=== PATIENT | female | born 1975 | race African-American/Black ===

== ENCOUNTER 2016-09-12 23:14 | Emergency (ER) | payer MEDICARE, MEDICAID ==
[~2016-09-12] VITALS: Ht 165.1 cm; Wt 61.0 kg
[~2016-09-12 23:14] MED LIST: ATOR80TA76 PO; CINA30 PO; ESOM40CA PO; LABE300T PO; NIFE60TA64 PO; ONDA4TAB5 PO; OXYC5CAP12 PO; SEVE800T8 PO
[2016-09-12] MEDS ORDERED: MORPHINE SULFATE 4 MG/ML CPJ (NOT FOR IM USE) IV STA (23:26)
[2016-09-12] MEDS ORDERED: ONDANSETRON HCL 4MG/2ML VIAL IV STA (23:26)
[2016-09-12] MEDS ORDERED: PANTOPRAZOLE SODIUM 40 MG/VIAL IV STA (23:26)
[2016-09-12] MEDS ORDERED: LABETALOL HCL 20MG/4ML CARPUJECT IV ONE (23:30)
[2016-09-12 23:58] LABS: BASOPHILS % 0.5 % (0.0-2.0); DIFFERENTIAL COMMENT 0; EOSINOPHILS % 0.3 % (0.0-5.0); HEMATOCRIT. 37.5 % (36.0-48.0); HEMOGLOBIN. 12.2 g/dL (12.0-16.0); LYMPHOCYTES % 11.3 % (20.0-50.0); MEAN CORPUSCULAR HEMOGLOBIN 23.3 pg (28.0-32.0); MEAN CORPUSCULAR HGB CONC 32.4 g/dL (31.0-37.0); MEAN CORPUSCULAR VOLUME 71.8 fL (81.0-99.0); MEAN PLATELET VOLUME 8.5 fl (7.4-10.4); MONOCYTES % 4.3 % (2.0-8.0); NEUTROPHILS % 83.6 % (40.0-76.0); PLATELET 178 x1000/uL (130-400); RED BLOOD CELL COUNT 5.22 mill/uL (4.2-5.4); RED CELL DISTRIBUTION WIDTH 20.8 % (11.6-14.6); WHITE BLOOD COUNT 6.9 x1000/uL (4.5-11.0)
[2016-09-13 00:05] LABS: INR 1.1; PROTHROMBIN TIME 11.4 sec
[2016-09-13 00:09] LABS: HCG SCREEN NEGATIVE
[2016-09-13 00:31] LABS: ALANINE AMINOTRANSFERASE 18 IU/L (13-61); ALBUMIN 4.2 g/dL (3.4-5.0); ANION GAP 19; CALCIUM 10.4 mg/dL (8.5-10.1); CARBON DIOXIDE 25 mEq/L (21-32); CHLORIDE 99 mEq/L (98-107); ETHANOL BLOOD < 10 mg/dL; INDEX HEMOLYSI 1 (1-3); INDEX ICTERIC 1 (1-4); INDEX LIPEMIC 1 (1-3); LIPASE 152 IU/L (73-393); TROPONIN I 0.03 ng/mL (0.00-0.04); UREA NITROGEN BLOOD 28 mg/dL (7-21); eGFR 8 mL/min (>60)
[2016-09-13 00:58] LABS: LACTIC ACID 2.2 mmol/L (0.4-2.0)
[2016-09-13] MEDS ORDERED: FENTANYL CITRATE/PF 50MCG/ML 2ML VIAL IV ONE ×2 (01:00→01:45)
[2016-09-13] MEDS ORDERED: HYDRALAZINE 20MG/ML VIAL IV ONE (01:45)
[2016-09-13] MEDS ORDERED: ONDANSETRON HCL 4MG/2ML VIAL IV STA (03:02)
[2016-09-13] MEDS ORDERED: HYDRALAZINE 20MG/ML VIAL IV NR (03:05)
[2016-09-13] MEDS ORDERED: MIDAZOLAM HCL 2 MG/2 ML VIAL IV ONE (03:15)
[2016-09-13 03:23] VITALS: BP 221/104
== END 2016-09-13 05:09 | disposition left against medical advice (07) ==
LOC: ER 23:20
DX: N18.9 Chronic kidney disease, unspecified (principal); R10.84 Generalized abdominal pain; I12.9 Hypertensive chronic kidney disease with stage 1 through stage 4 chronic kidney disease, or unspecified chronic kidney disease; I16.0 Hypertensive urgency; F17.210 Nicotine dependence, cigarettes, uncomplicated; Z88.1 Allergy status to other antibiotic agents; Z79.899 Other long term (current) drug therapy; Z99.2 Dependence on renal dialysis
CPT/HCPCS: 36415; 71010; 74176; 80053; 83605; 83690; 84484; 84703; 85025; 85610; 93005; 96374; 96375; 96376; 99291; C9113; G0482; J0360; J2250; J2270; J2405; J3010; J3490

== ENCOUNTER 2016-12-01 13:11 | Emergency (ER) | payer MEDICARE, MEDICAID ==
[~2016-12-01] VITALS: Ht 165.1 cm; Wt 79.0 kg
[~2016-12-01 13:11] MED LIST changes: +ATOR-2 PO; -ATOR80TA76 PO
[2016-12-01] MEDS ORDERED: MORPHINE SULFATE 4 MG/ML CPJ (NOT FOR IM USE) IV STA (14:25)
[2016-12-01] MEDS ORDERED: ONDANSETRON HCL 4MG/2ML VIAL IV STA (14:25)
[2016-12-01 15:21] LABS: BASOPHILS % 0.7 % (0.0-2.0); EOSINOPHILS % 0.6 % (0.0-5.0); HEMATOCRIT. 35.1 % (36.0-48.0); HEMOGLOBIN. 11.3 g/dL (12.0-16.0); LYMPHOCYTES % 12.3 % (20.0-50.0); MEAN CORPUSCULAR HEMOGLOBIN 24.1 pg (28.0-32.0); MEAN CORPUSCULAR VOLUME 74.7 fL (81.0-99.0); MEAN PLATELET VOLUME 9.3 fl (7.4-10.4); MONOCYTES % 3.5 % (2.0-8.0); NEUTROPHILS % 82.9 % (40.0-76.0); PLATELET 140 x1000/uL (130-400); RED CELL DISTRIBUTION WIDTH 17.6 % (11.6-14.6)
[2016-12-01 15:23] LABS: INR 1.1
[2016-12-01 15:29] LABS: CARBON DIOXIDE 29 mEq/L (21-32); CHLORIDE 101 mEq/L (98-107)
[2016-12-01 15:36] LABS: HCG SCREEN NEGATIVE
[2016-12-01] MEDS ORDERED: MORPHINE SULFATE 4 MG/ML CPJ (NOT FOR IM USE) IV ONE (16:00)
[2016-12-01 16:43] VITALS: BP 160/66
[2016-12-01] MEDS ORDERED: ACETAMINOPHEN 325MG TABLET PO ONE (16:45)
== END 2016-12-01 16:46 | disposition home or self-care (01) ==
LOC: ER 13:15
DX: R10.13 Epigastric pain (principal); R11.2 Nausea with vomiting, unspecified; R19.7 Diarrhea, unspecified; I13.11 Hypertensive heart and chronic kidney disease without heart failure, with stage 5 chronic kidney disease, or end stage renal disease; N18.6 End stage renal disease; I51.9 Heart disease, unspecified; Z99.2 Dependence on renal dialysis; Z88.1 Allergy status to other antibiotic agents
CPT/HCPCS: 36415; 74176; 80053; 83690; 84703; 85025; 85610; 96374; 96375; 96376; 99285; J2270; J2405

== ENCOUNTER 2016-12-01 20:37 | Emergency (ER) | payer MEDICARE, MEDICAID ==
[~2016-12-01] VITALS: Ht 165.1 cm; Wt 71.4 kg
[2016-12-01] MEDS ORDERED: ONDANSETRON HCL 4MG/2ML VIAL IV STA (22:19)
[2016-12-01] MEDS ORDERED: KETOROLAC 30MG/ML VIAL IV STA (22:19)
[2016-12-01 22:49] LABS: HEMATOCRIT. 33.9 % (36.0-48.0); HEMOGLOBIN. 10.8 g/dL (12.0-16.0); MEAN CORPUSCULAR HEMOGLOBIN 23.7 pg (28.0-32.0); MEAN CORPUSCULAR VOLUME 74.4 fL (81.0-99.0); PLATELET 145 x1000/uL (130-400); RED BLOOD CELL COUNT 4.55 mill/uL (4.2-5.4)
[2016-12-01 22:55] LABS: CHLORIDE 97 mEq/L (98-107)
[2016-12-01 22:56] LABS: INR 1.1; PROTHROMBIN TIME 11.1 sec
[2016-12-01 23:02] LABS: CARBON DIOXIDE 25 mEq/L (21-32)
[2016-12-01 23:07] LABS: PLATELET ESTIMATE NORMAL
[2016-12-02] MEDS ORDERED: HYDRALAZINE 20MG/ML VIAL IV ONE (00:45)
[2016-12-02 01:52] VITALS: BP 180/110
== END 2016-12-02 01:56 | disposition home or self-care (01) ==
LOC: ER 21:23
DX: R10.33 Periumbilical pain (principal); R11.2 Nausea with vomiting, unspecified; I16.0 Hypertensive urgency; I10 Essential (primary) hypertension; Z99.2 Dependence on renal dialysis; Z88.1 Allergy status to other antibiotic agents; Z79.899 Other long term (current) drug therapy
CPT/HCPCS: 36415; 74176; 80053; 83690; 85025; 85610; 96374; 96375; 99285; J0360; J1885; J2405

== ENCOUNTER 2016-12-19 22:29 | Emergency (ER) | payer MEDICARE, MEDICAID ==
[~2016-12-19] VITALS: Ht 162.6 cm; Wt 73.0 kg
[2016-12-19] MEDS ORDERED: METOCLOPRAMIDE HCL 10MG/2ML VIAL IV STA (23:56)
[2016-12-19] MEDS ORDERED: MORPHINE SULFATE 4 MG/ML CPJ (NOT FOR IM USE) IV STA (23:56)
[2016-12-20] MEDS ORDERED: DIPHENHYDRAMINE 50MG/ML VIAL IV ONE
[2016-12-20 00:24] LABS: BASOPHILS % 0.7 % (0.0-2.0); EOSINOPHILS % 0.2 % (0.0-5.0); HEMATOCRIT. 31.9 % (36.0-48.0); HEMOGLOBIN. 10.3 g/dL (12.0-16.0); LYMPHOCYTES % 8.4 % (20.0-50.0); MEAN CORPUSCULAR HEMOGLOBIN 24.5 pg (28.0-32.0); MEAN CORPUSCULAR VOLUME 76.1 fL (81.0-99.0); MONOCYTES % 2.9 % (2.0-8.0); NEUTROPHILS % 87.8 % (40.0-76.0); PLATELET 218 x1000/uL (130-400); RED BLOOD CELL COUNT 4.19 mill/uL (4.2-5.4); RED CELL DISTRIBUTION WIDTH 19.6 % (11.6-14.6)
[2016-12-20 00:28] LABS: CHLORIDE 101 mEq/L (98-107)
[2016-12-20 00:29] LABS: HCG SCREEN NEGATIVE
[2016-12-20 00:35] LABS: CARBON DIOXIDE 25 mEq/L (21-32)
[2016-12-20] MEDS ORDERED: LORAZEPAM 2MG/ML CPJ IV ONE (01:30)
[2016-12-20] MEDS ORDERED: MORPHINE SULFATE 4 MG/ML CPJ (NOT FOR IM USE) IV ONE (01:30)
[2016-12-20 01:50] VITALS: BP 146/86
== END 2016-12-20 02:05 | disposition home or self-care (01) ==
LOC: ER 23:19
DX: K29.70 Gastritis, unspecified, without bleeding (principal); N18.6 End stage renal disease; Z88.1 Allergy status to other antibiotic agents; Z99.2 Dependence on renal dialysis
CPT/HCPCS: 36415; 80053; 83690; 84703; 85025; 96374; 96375; 99284; J1200; J2270; J2765

== ENCOUNTER 2017-01-16 21:18 | Emergency (ER) | payer MEDICARE, MEDICAID ==
[~2017-01-16] VITALS: Ht 165.1 cm; Wt 70.3 kg
[2017-01-16] MEDS ORDERED: ONDANSETRON HCL 4MG/2ML VIAL IV STA (22:22)
[2017-01-16] MEDS ORDERED: KETOROLAC 30MG/ML VIAL IV STA (22:22)
[2017-01-16] MEDS ORDERED: LORAZEPAM 2MG/ML CPJ IV ONE (22:30)
[2017-01-16] MEDS ORDERED: CAPSAICIN 0.075% CREAM 60GM TOP PRN (22:30)
[2017-01-16 23:46] VITALS: BP 199/105
[2017-01-17 00:03] LABS: BASOPHILS % 0.8 % (0.0-2.0); EOSINOPHILS % 0.2 % (0.0-5.0); HEMATOCRIT. 38.5 % (36.0-48.0); HEMOGLOBIN. 11.6 g/dL (12.0-16.0); LYMPHOCYTES % 10.6 % (20.0-50.0); MEAN CORPUSCULAR HEMOGLOBIN 23.9 pg (28.0-32.0); MEAN CORPUSCULAR VOLUME 79.2 fL (81.0-99.0); MEAN PLATELET VOLUME 9.3 fl (7.4-10.4); MONOCYTES % 5.9 % (2.0-8.0); NEUTROPHILS % 82.5 % (40.0-76.0); PLATELET 181 x1000/uL (130-400); RED BLOOD CELL COUNT 4.86 mill/uL (4.2-5.4); RED CELL DISTRIBUTION WIDTH 21.6 % (11.6-14.6)
[2017-01-17 00:07] LABS: CHLORIDE 102 mEq/L (98-107)
[2017-01-17 00:10] LABS: INR 1.1; PROTHROMBIN TIME 11.4 sec
[2017-01-17 00:13] LABS: HCG SCREEN NEGATIVE
[2017-01-17 00:15] LABS: CARBON DIOXIDE 24 mEq/L (21-32)
[2017-01-17] MEDS ORDERED: LORAZEPAM 1MG TABLET PO ONE (00:15)
== END 2017-01-17 03:25 | disposition home or self-care (01) ==
LOC: ER 21:47
DX: R10.13 Epigastric pain (principal); R11.0 Nausea; I12.0 Hypertensive chronic kidney disease with stage 5 chronic kidney disease or end stage renal disease; N18.6 End stage renal disease; Z99.2 Dependence on renal dialysis; Z88.1 Allergy status to other antibiotic agents
CPT/HCPCS: 36415; 80053; 83690; 84703; 85025; 85610; 96374; 96375; 99284; J1885; J2060; J2405; J7030; 99285

== ENCOUNTER 2017-01-17 06:09 | Inpatient (IN) | payer MEDICARE, MEDICAID ==
[~2017-01-17] VITALS: Ht 165.1 cm; Wt 67.6 kg
[2017-01-17] MEDS ORDERED: LORAZEPAM 2MG/ML CPJ IV STA (06:16)
[2017-01-17] MEDS ORDERED: LORAZEPAM 2MG/ML CPJ IM PRN (06:45)
[2017-01-17 06:54] LABS: BASOPHILS % 0.3 % (0.0-2.0); HEMOGLOBIN. 10.9 g/dL (12.0-16.0); LYMPHOCYTES % 8.1 % (20.0-50.0); MEAN CORPUSCULAR HEMOGLOBIN 23.7 pg (28.0-32.0); MEAN CORPUSCULAR VOLUME 78.3 fL (81.0-99.0); MEAN PLATELET VOLUME 9.4 fl (7.4-10.4); NEUTROPHILS % 85.6 % (40.0-76.0); PLATELET 218 x1000/uL (130-400); RED CELL DISTRIBUTION WIDTH 20.8 % (11.6-14.6)
[2017-01-17 06:59] LABS: INR 1.1; PROTHROMBIN TIME 11.5 sec
[2017-01-17 07:11] LABS: CARBON DIOXIDE 25 mEq/L (21-32); CHLORIDE 96 mEq/L (98-107); ETHANOL BLOOD < 10 mg/dL; TROPONIN I 0.08 ng/mL (0.00-0.04)
[2017-01-17 07:33] LABS: AMMONIA 64 uMol/L (<32)
[2017-01-17] MEDS: LORAZEPAM 2MG/ML CPJ IM PRN ×2 (07:33→10:38)
[2017-01-17] MEDS ORDERED: OLANZAPINE 10 MG/VIAL IM ONE (08:15)
[2017-01-17] MEDS: SODIUM CHLORIDE 0.45% 1,000 ML IV SCH (09:29)
[2017-01-17] MEDS ORDERED: DIPHENHYDRAMINE 50MG/ML VIAL IV PRN (09:30)
[2017-01-17] MEDS ORDERED: IPRATROPIUM/ALBUTEROL 0.5-3(2.5)MG/3ML NEB INH PRN (09:30)
[2017-01-17] MEDS ORDERED: GUAIFENESIN 200MG/10ML SUGAR FREE UDC PO PRN (09:30)
[2017-01-17] MEDS ORDERED: NA PHOS,M-B/NA PHOS,DI-BA ENEMA 118ML PR PRN (09:30)
[2017-01-17] MEDS ORDERED: HYDROCODONE/ACETAMINOPHEN 5/325MG TABLET PO PRN (09:30)
[2017-01-17] MEDS ORDERED: DOCUSATE SODIUM 100MG CAPSULE PO PRN (09:30)
[2017-01-17] MEDS ORDERED: MAGNESIUM/ALUMINUM HYDROXIDE/SIMETHICONE 30ML UDC PO PRN (09:30)
[2017-01-17] MEDS ORDERED: ACETAMINOPHEN 325MG TABLET PO PRN (09:30)
[2017-01-17] MEDS: CLONIDINE 0.1MG TABLET PO PRN ×2 (13:14→19:42)
[2017-01-17] MEDS: ENOXAPARIN 30MG/0.3ML SYR SUBCUT SCH (15:00)
[2017-01-17 15:40] VITALS: BP 147/78
[2017-01-17 18:01] LABS: TROPONIN I 0.15 ng/mL (0.00-0.04)
[2017-01-17 19:41] VITALS: BP 212/128
[2017-01-17] MEDS: HYDROMORPHONE HCL/PF 2MG/ML CPJ IV PRN (19:42)
[2017-01-17 20:42] VITALS: BP 184/85
[2017-01-17] MEDS: CLONIDINE 0.3MG TABLET PO PRN (21:35)
[2017-01-17 22:31] VITALS: BP 149/71
[2017-01-18] VITALS (8 sets, daily range): BP systolic 115–225; BP diastolic 56–117
[2017-01-18] MEDS: ONDANSETRON HCL 4MG/2ML VIAL IV PRN ×2 (02:15→11:18)
[2017-01-18] MEDS: HYDROMORPHONE HCL/PF 2MG/ML CPJ IV PRN ×3 (02:21→21:52)
[2017-01-18] MEDS: CLONIDINE 0.3MG TABLET PO PRN (04:32)
[2017-01-18 06:31] LABS: BASOPHILS % 1.6 % (0.0-2.0); EOSINOPHILS % 1.5 % (0.0-5.0); HEMATOCRIT. 37.5 % (36.0-48.0); HEMOGLOBIN. 11.8 g/dL (12.0-16.0); LYMPHOCYTES % 22.3 % (20.0-50.0); MEAN CORPUSCULAR HEMOGLOBIN 24.3 pg (28.0-32.0); MEAN CORPUSCULAR VOLUME 77.3 fL (81.0-99.0); MEAN PLATELET VOLUME 9.7 fl (7.4-10.4); MONOCYTES % 8.6 % (2.0-8.0); PLATELET 171 x1000/uL (130-400); RED BLOOD CELL COUNT 4.85 mill/uL (4.2-5.4); RED CELL DISTRIBUTION WIDTH 20.6 % (11.6-14.6)
[2017-01-18 07:39] LABS: CARBON DIOXIDE 29 mEq/L (21-32); CHLORIDE 94 mEq/L (98-107); HDL CHOLESTEROL 50 mg/dL (40-59); LDL CHOLESTEROL 131 mg/dL (5-100); T4 FREE 0.94 ng/dL (0.76-1.46)
[2017-01-18] MEDS: METOPROLOL TARTRATE 25MG TABLET PO SCH ×2 (10:16→21:02)
[2017-01-18] MEDS: AMLODIPINE 10MG TABLET PO SCH (10:16)
[2017-01-18] MEDS: SODIUM CHLORIDE 0.45% 1,000 ML IV SCH (10:17)
[2017-01-18] MEDS: ENOXAPARIN 30MG/0.3ML SYR SUBCUT SCH (15:34)
[2017-01-19 05:08] VITALS: BP 143/84
[2017-01-19] MEDS: HYDROMORPHONE HCL/PF 2MG/ML CPJ IV PRN ×2 (05:14→09:04)
[2017-01-19 07:05] LABS: BASOPHILS % 1.3 % (0.0-2.0); HEMATOCRIT. 32.9 % (36.0-48.0); HEMOGLOBIN. 10.5 g/dL (12.0-16.0); LYMPHOCYTES % 35.5 % (20.0-50.0); MEAN CORPUSCULAR HEMOGLOBIN 24.2 pg (28.0-32.0); MEAN CORPUSCULAR VOLUME 76.1 fL (81.0-99.0); MEAN PLATELET VOLUME 9.6 fl (7.4-10.4); MONOCYTES % 11.8 % (2.0-8.0); NEUTROPHILS % 45.4 % (40.0-76.0); PLATELET 158 x1000/uL (130-400); RED BLOOD CELL COUNT 4.32 mill/uL (4.2-5.4); RED CELL DISTRIBUTION WIDTH 20.2 % (11.6-14.6)
[2017-01-19 08:00] VITALS: BP 140/91
[2017-01-19] MEDS: SODIUM CHLORIDE 0.45% 1,000 ML IV SCH (09:04)
[2017-01-19 12:00] VITALS: BP 159/93
[2017-01-19 14:09] VITALS: BP 135/88
[2017-01-19] MEDS: AMLODIPINE 10MG TABLET PO SCH (14:53)
[2017-01-19] MEDS: METOPROLOL TARTRATE 25MG TABLET PO SCH (14:53)
[2017-01-19] MEDS: ENOXAPARIN 30MG/0.3ML SYR SUBCUT SCH (14:53)
[2017-01-19 15:45] VITALS: BP 135/88
== END 2017-01-19 16:44 | disposition home or self-care (01) | DRG 91 ==
LOC: ER 06:11 → 8WST 08:16 → ENRESERV 14:12 → 8WST 16:08
PROVIDERS: ADMIT Internal Medicine; ATTEND Internal Medicine
PROC: 02HV33Z Insertion of Infusion Device into Superior Vena Cava, Percutaneous Approach (ICD-10-PCS; principal; 2017-01-17)
PROC: B548ZZA Ultrasonography of Superior Vena Cava, Guidance (ICD-10-PCS; 2017-01-17)
PROC: 5A1D00Z (ICD-10-PCS; 2017-01-19)
DX: G92 Toxic encephalopathy (principal); N18.6 End stage renal disease; I12.0 Hypertensive chronic kidney disease with stage 5 chronic kidney disease or end stage renal disease; R41.0 Disorientation, unspecified; D72.829 Elevated white blood cell count, unspecified; R62.7 Adult failure to thrive; M81.0 Age-related osteoporosis without current pathological fracture; Z99.2 Dependence on renal dialysis; Z88.1 Allergy status to other antibiotic agents; Z91.19 Patient's noncompliance with other medical treatment and regimen
CPT/HCPCS: 36415; 36569; 70450; 71010; 76937; 80048; 80053; 80061; 80307; 80329; 82140; 82962; 83605; 83690; 84439; 84443; 84484; 84703; 85025; 85610; 87040; 93005; 96372; 99285; G0482; J1170; J1200; J1650; J2060; J2405; J3490; J7030

== ENCOUNTER 2017-02-05 10:29 | Emergency (ER) | payer MEDICARE, MEDICAID ==
[~2017-02-05] VITALS: Ht 165.1 cm; Wt 79.0 kg
[2017-02-05] MEDS ORDERED: MORPHINE SULFATE 4 MG/ML CPJ (NOT FOR IM USE) IV STA (11:24)
[2017-02-05] MEDS ORDERED: ONDANSETRON HCL 4MG/2ML VIAL IV STA (11:24)
[2017-02-05] MEDS ORDERED: PANTOPRAZOLE SODIUM 40 MG/VIAL IV STA (11:24)
[2017-02-05 11:54] VITALS: BP 198/101
[2017-02-05 12:20] LABS: EOSINOPHILS % 0.3 % (0.0-5.0); HEMATOCRIT. 36.1 % (36.0-48.0); HEMOGLOBIN. 11.2 g/dL (12.0-16.0); LYMPHOCYTES % 14.4 % (20.0-50.0); MEAN CORPUSCULAR HEMOGLOBIN 23.6 pg (28.0-32.0); MEAN CORPUSCULAR VOLUME 76.1 fL (81.0-99.0); MEAN PLATELET VOLUME 9.1 fl (7.4-10.4); MONOCYTES % 5.7 % (2.0-8.0); NEUTROPHILS % 78.6 % (40.0-76.0); PLATELET 204 x1000/uL (130-400); RED BLOOD CELL COUNT 4.75 mill/uL (4.2-5.4); RED CELL DISTRIBUTION WIDTH 19.8 % (11.6-14.6)
[2017-02-05 12:29] LABS: CHLORIDE 98 mEq/L (98-107); INR 1.1; PARTIAL THROMBOPLASTIN TIME 27.5 sec (23.4-31.0); PROTHROMBIN TIME 11.5 sec (9.4-11.6)
[2017-02-05 12:35] LABS: CARBON DIOXIDE 25 mEq/L (21-32)
[2017-02-05] MEDS ORDERED: MORPHINE SULFATE 4 MG/ML CPJ (NOT FOR IM USE) IV ONE (13:15)
== END 2017-02-05 13:25 | disposition left against medical advice (07) ==
LOC: ER 10:29
DX: R10.12 Left upper quadrant pain (principal); I12.0 Hypertensive chronic kidney disease with stage 5 chronic kidney disease or end stage renal disease; N18.6 End stage renal disease; Z99.2 Dependence on renal dialysis; Z88.1 Allergy status to other antibiotic agents
CPT/HCPCS: 36415; 80053; 83605; 83690; 85025; 85610; 85730; 87040; 93005; 96374; 96375; 99285; C9113; J2270; J2405

== ENCOUNTER 2017-04-20 19:26 | Emergency (ER) | payer MEDICARE, MEDICAID ==
[~2017-04-20] VITALS: Ht 170.2 cm; Wt 63.0 kg
[2017-04-20] MEDS ORDERED: ONDANSETRON HCL 4MG/2ML VIAL IV ONE (20:15)
[2017-04-20] MEDS ORDERED: MORPHINE SULFATE 10 MG/ML CPJ IM ONE (20:15)
[2017-04-20] MEDS ORDERED: ONDANSETRON HCL 4MG/2ML VIAL IM ONE (20:30)
[2017-04-20] MEDS ORDERED: MORPHINE SULFATE 4 MG/ML CPJ (NOT FOR IM USE) IV ONE (21:30)
[2017-04-20] MEDS ORDERED: LORAZEPAM 2MG/ML CPJ IV ONE (21:45)
[2017-04-20 22:43] LABS: HEMATOCRIT. 39.7 % (36.0-48.0); HEMOGLOBIN. 12.7 g/dL (12.0-16.0); MEAN CORPUSCULAR HEMOGLOBIN 22.2 pg (28.0-32.0); MEAN CORPUSCULAR VOLUME 69.8 fL (81.0-99.0); MEAN PLATELET VOLUME 9.3 fl (7.4-10.4); PLATELET 223 x1000/uL (130-400); RED BLOOD CELL COUNT 5.69 mill/uL (4.2-5.4); RED CELL DISTRIBUTION WIDTH 21.4 % (11.6-14.6)
[2017-04-20 22:46] LABS: HCG SCREEN NEGATIVE
[2017-04-20 22:48] LABS: CHLORIDE 96 mEq/L (98-107)
[2017-04-20] MEDS ORDERED: IOHEXOL-300 100 ML BOTTLE ONE (22:50)
[2017-04-20 22:54] LABS: CARBON DIOXIDE 26 mEq/L (21-32)
[2017-04-20 22:55] LABS: INR 1.1; PARTIAL THROMBOPLASTIN TIME 24.3 sec (23.4-31.0); PROTHROMBIN TIME 11.3 sec (9.4-11.6)
[2017-04-20 23:00] LABS: PLATELET ESTIMATE NORMAL
[2017-04-21] MEDS ORDERED: DIPHENHYDRAMINE 50MG/ML VIAL IV ONE
[2017-04-21] MEDS ORDERED: LORAZEPAM 2MG/ML CPJ IV ONE
[2017-04-21] MEDS ORDERED: FENTANYL CITRATE/PF 50MCG/ML 2ML VIAL IV ONE (05:00)
[2017-04-21] MEDS ORDERED: ONDANSETRON HCL 4MG/2ML VIAL IV PRN (05:30)
[2017-04-21] MEDS ORDERED: MORPHINE SULFATE 4 MG/ML CPJ (NOT FOR IM USE) IV PRN (05:30)
[2017-04-21 05:45] VITALS: BP 189/87
== END 2017-04-21 05:49 | disposition left against medical advice (07) ==
LOC: ER 19:42 → ENRESERV 04-21 06:54 → CANRESERV 04-21 06:54 → CANBEDREQ 04-21 16:22
DX: R10.33 Periumbilical pain (principal); I12.0 Hypertensive chronic kidney disease with stage 5 chronic kidney disease or end stage renal disease; N18.6 End stage renal disease; Z99.2 Dependence on renal dialysis; Z20.6 Contact with and (suspected) exposure to human immunodeficiency virus [HIV]; Z88.3 Allergy status to other anti-infective agents
CPT/HCPCS: 36415; 71010; 80053; 83605; 83690; 84703; 85025; 85610; 85730; 87040; 96372; 96374; 96375; 99285; J1200; J2060; J2270; J2405; J3010; Q9967

== ENCOUNTER 2017-05-11 19:50 | Emergency (ER) | payer MEDICARE, MEDICAID ==
[~2017-05-11] VITALS: Ht 167.6 cm; Wt 71.0 kg
[2017-05-11] MEDS ORDERED: MORPHINE SULFATE 4 MG/ML CPJ (NOT FOR IM USE) IV STA (20:04)
[2017-05-11] MEDS ORDERED: ONDANSETRON HCL 4MG/2ML VIAL IV STA (20:04)
[2017-05-11] MEDS ORDERED: LABETALOL 5MG/ML SYR 20 MG/4 ML SYRINGE IV ONE (20:15)
[2017-05-11] MEDS ORDERED: MIDAZOLAM HCL 2 MG/2 ML VIAL IV ONE ×2 (20:15→21:15)
[2017-05-11] MEDS ORDERED: MORPHINE SULFATE 10 MG/ML CPJ IV SCH (20:30)
[2017-05-11] MEDS ORDERED: OLANZAPINE 10 MG/VIAL IM ONE (21:15)
[2017-05-11 21:26] LABS: INR 1.1; PROTHROMBIN TIME 11.5 sec (9.4-11.6)
[2017-05-11 21:27] LABS: BASOPHILS % 1.6 % (0.0-2.0); EOSINOPHILS % 0.4 % (0.0-5.0); HEMATOCRIT. 32.5 % (36.0-48.0); HEMOGLOBIN. 10.3 g/dL (12.0-16.0); MEAN CORPUSCULAR HEMOGLOBIN 22.9 pg (28.0-32.0); MEAN CORPUSCULAR VOLUME 72.1 fL (81.0-99.0); MONOCYTES % 8.4 % (2.0-8.0); NEUTROPHILS % 75.6 % (40.0-76.0); PLATELET 257 x1000/uL (130-400); RED BLOOD CELL COUNT 4.51 mill/uL (4.2-5.4); RED CELL DISTRIBUTION WIDTH 22.9 % (11.6-14.6)
[2017-05-11 21:28] LABS: HCG SCREEN NEGATIVE
[2017-05-11 21:34] LABS: CARBON DIOXIDE 29 mEq/L (21-32); CHLORIDE 99 mEq/L (98-107); ETHANOL BLOOD < 10 mg/dL
[2017-05-11 21:37] LABS: TROPONIN I < 0.02 ng/mL (0.00-0.04)
[2017-05-12 00:24] VITALS: BP 140/90
[2017-05-20 09:11] LABS: 7-AMINOCLONAZEPAM CONFIRM Negative (.); ALPRAZOLAM CONFIRM Negative (.); CHLORDIAZEPOXIDE CONFIRM Negative (.); CLONAZEPAM CONFIRM Negative (.); DESMETHYLCHLORDIAZEPOXIDE Negative (.); DIAZEPAM CONFIRM Negative (.); FLURAZEPAM CONFIRM Negative (.); LORAZEPAM CONFIRM Negative (.); MIDAZOLAM CONFIRM 17 ng/mL (.); OXAZEPAM CONFIRM Negative (.); TEMAZEPAM CONFIRM Negative (.); TRIAZOLAM CONFIRM Negative (.)
[2017-05-21 04:18] LABS: BARBITURATE SCREEN Negative ug/mL (Cutoff:0.1); BENZODIAZEPINE SCREEN ++POSITIVE++ ng/mL (Cutoff:20); OPIATES SCREEN ++POSITIVE++ ng/mL (Cutoff:5); PHENCYCLIDINE SCREEN Negative ng/mL (Cutoff:8)
== END 2017-05-12 00:52 | disposition left against medical advice (07) ==
LOC: ER 20:08 → CANRESERV 23:57 → ENRESERV 23:57 → ER 05-12 00:52 → CANBEDREQ 05-12 01:36
DX: I16.0 Hypertensive urgency (principal); I12.0 Hypertensive chronic kidney disease with stage 5 chronic kidney disease or end stage renal disease; N18.6 End stage renal disease; N17.9 Acute kidney failure, unspecified; I48.92 Unspecified atrial flutter; R73.9 Hyperglycemia, unspecified; G89.29 Other chronic pain; D64.9 Anemia, unspecified; R18.8 Other ascites; Z99.2 Dependence on renal dialysis
CPT/HCPCS: 36415; 71010; 74176; 80053; 80307; 83690; 83735; 84100; 84484; 84703; 85025; 85610; 93005; 96372; 96374; 96375; 96376; 99282; 99285; 99291; G0482; J1885; J2250; J2270; J2405; J3490; Q0162

== ENCOUNTER 2017-05-12 02:32 | Emergency (ER) | payer MEDICARE, MEDICAID ==
[~2017-05-12] VITALS: Ht 167.6 cm; Wt 77.0 kg
[2017-05-12 02:51] VITALS: BP 157/91
[2017-05-12] MEDS ORDERED: MAGNESIUM/ALUMINUM HYDROXIDE/SIMETHICONE 30ML UDC PO ONE (03:15)
== END 2017-05-12 03:25 | disposition home or self-care (01) ==
LOC: ER 02:32
DX: R10.9 Unspecified abdominal pain (principal); I12.9 Hypertensive chronic kidney disease with stage 1 through stage 4 chronic kidney disease, or unspecified chronic kidney disease; N18.9 Chronic kidney disease, unspecified; Z99.2 Dependence on renal dialysis
CPT/HCPCS: 99282

== ENCOUNTER 2017-05-12 08:08 | Emergency (ER) | payer MEDICARE, MEDICAID ==
[~2017-05-12] VITALS: Ht 162.6 cm; Wt 60.0 kg
[2017-05-12] MEDS ORDERED: IBUPROFEN 600MG TABLET PO STA (08:36)
[2017-05-12] MEDS ORDERED: ACETAMINOPHEN 325MG TABLET PO STA (08:36)
[2017-05-12] MEDS ORDERED: VISCOUS LIDOCAINE 2% 15 ML UDC PO STA (08:36)
[2017-05-12] MEDS ORDERED: ONDANSETRON 4MG ODT PO STA (08:36)
[2017-05-12] MEDS ORDERED: DICYCLOMINE 10 MG/5 ML ORAL SYR PO STA (08:36)
[2017-05-12] MEDS ORDERED: MAGNESIUM/ALUMINUM HYDROXIDE/SIMETHICONE 30ML UDC PO STA (08:36)
[2017-05-12 09:19] LABS: BASOPHILS % 1.2 % (0.0-2.0); EOSINOPHILS % 0.5 % (0.0-5.0); HEMATOCRIT. 31.5 % (36.0-48.0); HEMOGLOBIN. 9.9 g/dL (12.0-16.0); LYMPHOCYTES % 16.7 % (20.0-50.0); MEAN CORPUSCULAR HEMOGLOBIN 22.5 pg (28.0-32.0); MEAN CORPUSCULAR VOLUME 71.5 fL (81.0-99.0); MEAN PLATELET VOLUME 8.8 fl (7.4-10.4); MONOCYTES % 11.1 % (2.0-8.0); NEUTROPHILS % 70.5 % (40.0-76.0); PLATELET 251 x1000/uL (130-400); RED BLOOD CELL COUNT 4.41 mill/uL (4.2-5.4)
[2017-05-12 09:24] LABS: INR 1.1; PROTHROMBIN TIME 11.8 sec (9.4-11.6)
[2017-05-12 09:33] LABS: CARBON DIOXIDE 30 mEq/L (21-32); CHLORIDE 95 mEq/L (98-107)
[2017-05-12 10:26] LABS: PLATELET ESTIMATE NORMAL
[2017-05-12] MEDS ORDERED: KETOROLAC 30MG/ML VIAL IV ONE (10:30)
[2017-05-12 11:10] VITALS: BP 133/86
== END 2017-05-12 11:21 | disposition home or self-care (01) ==
LOC: ER 08:21
DX: I12.0 Hypertensive chronic kidney disease with stage 5 chronic kidney disease or end stage renal disease (principal); R10.9 Unspecified abdominal pain; N18.6 End stage renal disease; G89.29 Other chronic pain; Z88.1 Allergy status to other antibiotic agents; Z99.2 Dependence on renal dialysis
CPT/HCPCS: 36415; 80053; 83690; 85025; 85610; 93005; 96374; 99285; J1885; Q0162

== ENCOUNTER 2017-05-23 03:58 | Emergency (ER) | payer MEDICARE, MEDICAID ==
[~2017-05-23] VITALS: Ht 165.1 cm; Wt 75.0 kg
[2017-05-23 05:39] LABS: INR 1.1; PROTHROMBIN TIME 11.7 sec (9.4-11.6)
[2017-05-23 05:46] LABS: CARBON DIOXIDE 28 mEq/L (21-32); CHLORIDE 99 mEq/L (98-107)
[2017-05-23 06:08] LABS: BASOPHILS % 0.5 % (0.0-2.0); EOSINOPHILS % 0.4 % (0.0-5.0); HEMATOCRIT. 28.9 % (36.0-48.0); HEMOGLOBIN. 9.4 g/dL (12.0-16.0); MEAN CORPUSCULAR HEMOGLOBIN 23.6 pg (28.0-32.0); MEAN CORPUSCULAR VOLUME 72.6 fL (81.0-99.0); MEAN PLATELET VOLUME 8.6 fl (7.4-10.4); MONOCYTES % 8.8 % (2.0-8.0); NEUTROPHILS % 77.3 % (40.0-76.0); PLATELET 208 x1000/uL (130-400); RED BLOOD CELL COUNT 3.98 mill/uL (4.2-5.4); RED CELL DISTRIBUTION WIDTH 25.7 % (11.6-14.6)
[2017-05-23] MEDS ORDERED: MORPHINE SULFATE 2 MG/ML CPJ (NOT FOR IM USE) IV ONE (07:15)
[2017-05-23] MEDS ORDERED: HALOPERIDOL LACTATE 5MG/ML VIAL IM ONE (07:15)
[2017-05-23] MEDS ORDERED: MAGNESIUM/ALUMINUM HYDROXIDE/SIMETHICONE 30ML UDC PO STA (07:21)
[2017-05-23] MEDS ORDERED: DICYCLOMINE 10 MG/5 ML ORAL SYR PO STA (07:21)
[2017-05-23] MEDS ORDERED: VISCOUS LIDOCAINE 2% 15 ML UDC PO STA (07:21)
[2017-05-23 11:30] VITALS: BP 167/96
== END 2017-05-23 11:53 | disposition home or self-care (01) ==
LOC: ER 03:58
DX: R10.816 Epigastric abdominal tenderness (principal); R11.2 Nausea with vomiting, unspecified; R05 Cough; I10 Essential (primary) hypertension; F17.200 Nicotine dependence, unspecified, uncomplicated; Z99.2 Dependence on renal dialysis; Z88.8 Allergy status to other drugs, medicaments and biological substances; Z98.890 Other specified postprocedural states
CPT/HCPCS: 36415; 80053; 83690; 85025; 85610; 96372; 96374; 99284; J1630; J2270

== ENCOUNTER 2017-05-27 12:57 | Emergency (ER) | payer MEDICARE, MEDICAID ==
[~2017-05-27] VITALS: Ht 162.6 cm; Wt 71.0 kg
[2017-05-27] MEDS ORDERED: MORPHINE SULFATE 4 MG/ML CPJ (NOT FOR IM USE) IV STA (13:08)
[2017-05-27] MEDS ORDERED: ONDANSETRON HCL 4MG/2ML VIAL IV STA (13:08)
[2017-05-27] MEDS ORDERED: MORPHINE SULFATE 10 MG/ML CPJ IM ONE (13:45)
[2017-05-27] MEDS ORDERED: ONDANSETRON HCL 4MG/2ML VIAL IM ONE (13:45)
[2017-05-27 13:48] LABS: HEMATOCRIT. 29.2 % (36.0-48.0); HEMOGLOBIN. 9.5 g/dL (12.0-16.0); MEAN CORPUSCULAR HEMOGLOBIN 23.4 pg (28.0-32.0); MEAN CORPUSCULAR VOLUME 71.7 fL (81.0-99.0); RED BLOOD CELL COUNT 4.07 mill/uL (4.2-5.4)
[2017-05-27 14:14] LABS: CARBON DIOXIDE 29 mEq/L (21-32); CHLORIDE 101 mEq/L (98-107)
[2017-05-27 14:29] LABS: HCG SCREEN NEGATIVE
[2017-05-27 15:32] LABS: PLATELET 150 x1000/uL (130-400)
[2017-05-27 15:33] LABS: MEAN PLATELET VOLUME 8.7 fl (7.4-10.4); PLATELET ESTIMATE NORMAL
[2017-05-27 15:46] LABS: INR 1.1; PROTHROMBIN TIME 11.4 sec (9.4-11.6)
[2017-05-27 17:00] VITALS: BP 124/95
== END 2017-05-27 17:14 | disposition home or self-care (01) ==
LOC: ER 13:04
DX: R10.32 Left lower quadrant pain (principal); I12.0 Hypertensive chronic kidney disease with stage 5 chronic kidney disease or end stage renal disease; N18.6 End stage renal disease; Z99.2 Dependence on renal dialysis; Z88.1 Allergy status to other antibiotic agents
CPT/HCPCS: 36415; 74176; 80053; 83690; 84703; 85025; 85610; 96372; 99285; J2270; J2405

== ENCOUNTER 2018-09-15 07:49 | Emergency (ER) | payer MEDICARE, MEDICAID ==
[~2018-09-15] VITALS: Ht 162.6 cm; Wt 68.0 kg
[~2018-09-15 07:49] MED LIST changes: -LABE300T PO; +LABE300T3 PO
[2018-09-15] MEDS ORDERED: MORPHINE SULFATE 4 MG/ML CPJ (NOT FOR IM USE) IV STA (08:06)
[2018-09-15] MEDS ORDERED: ONDANSETRON HCL 4MG/2ML INJ IV STA (08:06)
[2018-09-15] MEDS ORDERED: SODIUM CHLORIDE 0.9% 500 ML IV ONE (08:15)
[2018-09-15 08:58] LABS: BASOPHILS % 0.6 % (0.0-2.0); EOSINOPHILS % 0.2 % (0.0-5.0); HEMATOCRIT. 33.2 % (36.0-48.0); HEMOGLOBIN. 10.3 g/dL (12.0-16.0); LYMPHOCYTES % 8.6 % (20.0-50.0); MEAN CORPUSCULAR HEMOGLOBIN 22.2 pg (28.0-32.0); MEAN CORPUSCULAR VOLUME 71.5 fL (81.0-99.0); MEAN PLATELET VOLUME 10.1 fl (7.4-10.4); MONOCYTES % 4.1 % (2.0-8.0); NEUTROPHILS % 86.5 % (40.0-76.0); PLATELET 218 x1000/uL (130-400); RED BLOOD CELL COUNT 4.64 mill/uL (4.2-5.4); RED CELL DISTRIBUTION WIDTH 18.2 % (11.6-14.6)
[2018-09-15 09:01] LABS: CHLORIDE 102 mEq/L (98-107)
[2018-09-15 09:03] LABS: PROTHROMBIN TIME 10.7 sec (9.6-11.0)
[2018-09-15] MEDS ORDERED: FENTANYL CITRATE/PF 50MCG/ML 2ML VIAL IV ONE (09:30)
[2018-09-15] MEDS ORDERED: DIPHENHYDRAMINE 50MG/ML VIAL IV ONE (09:30)
[2018-09-15] MEDS ORDERED: DICYCLOMINE HCL 10MG/ML 2ML AMP IM ONE (09:30)
[2018-09-15] MEDS ORDERED: METOCLOPRAMIDE HCL 10MG/2ML VIAL IV ONE (09:30)
[2018-09-15 09:45] LABS: HCG SCREEN POSITIVE
[2018-09-15 09:55] VITALS: BP 235/138
[2018-09-15] MEDS ORDERED: CLONIDINE 0.2MG TABLET PO ONE (10:15)
[2018-09-15] MEDS ORDERED: LORAZEPAM 2MG/ML CPJ IV ONE (10:30)
== END 2018-09-15 11:49 | disposition left against medical advice (07) ==
LOC: ER 07:49
DX: O26.891 Other specified pregnancy related conditions, first trimester (principal); R10.84 Generalized abdominal pain; O10.211 Pre-existing hypertensive chronic kidney disease complicating pregnancy, first trimester; I12.0 Hypertensive chronic kidney disease with stage 5 chronic kidney disease or end stage renal disease; N18.6 End stage renal disease; O99.011 Anemia complicating pregnancy, first trimester; D63.8 Anemia in other chronic diseases classified elsewhere; O21.9 Vomiting of pregnancy, unspecified; Z3A.00 Weeks of gestation of pregnancy not specified; Z99.2 Dependence on renal dialysis; Z88.1 Allergy status to other antibiotic agents
CPT/HCPCS: 36415; 76856; 80053; 83690; 84702; 84703; 85025; 85610; 96361; 96372; 96374; 96375; 99284; J1200; J2060; J2270; J2405; J2765; J3010; J7040

== ENCOUNTER 2018-09-16 00:41 | Emergency (ER) | payer MEDICARE, MEDICAID ==
[~2018-09-16] VITALS: Ht 165.1 cm; Wt 64.0 kg
[2018-09-16 01:17] VITALS: BP 193/106
[2018-09-16 03:41] LABS: BASOPHILS % 0.6 % (0.0-2.0); HEMATOCRIT. 31.6 % (36.0-48.0); HEMOGLOBIN. 9.9 g/dL (12.0-16.0); LYMPHOCYTES % 8.6 % (20.0-50.0); MEAN CORPUSCULAR HEMOGLOBIN 22.5 pg (28.0-32.0); MEAN CORPUSCULAR VOLUME 71.7 fL (81.0-99.0); MEAN PLATELET VOLUME 9.6 fl (7.4-10.4); MONOCYTES % 7.3 % (2.0-8.0); NEUTROPHILS % 83.5 % (40.0-76.0); PLATELET 173 x1000/uL (130-400); RED BLOOD CELL COUNT 4.41 mill/uL (4.2-5.4); RED CELL DISTRIBUTION WIDTH 18.3 % (11.6-14.6)
[2018-09-16 03:42] LABS: CHLORIDE 98 mEq/L (98-107)
[2018-09-16 03:48] LABS: INR 1.1; PROTHROMBIN TIME 11.4 sec (9.6-11.0)
[2018-09-16] MEDS ORDERED: ACETAMINOPHEN 650MG/20.3ML UDC PO ONE (04:45)
[2018-09-16] MEDS ORDERED: ACETAMINOPHEN 650MG/20.3ML UDC ONE (05:15)
== END 2018-09-16 05:29 | disposition home or self-care (01) ==
LOC: ER 00:41
DX: Z76.5 Malingerer [conscious simulation] (principal); R10.84 Generalized abdominal pain; I12.0 Hypertensive chronic kidney disease with stage 5 chronic kidney disease or end stage renal disease; N18.6 End stage renal disease; Z99.2 Dependence on renal dialysis; Z88.3 Allergy status to other anti-infective agents
CPT/HCPCS: 36415; 84702; 99283

== ENCOUNTER 2018-09-24 05:43 | Inpatient (IN) | payer MEDICARE, MEDICAID ==
[~2018-09-24] VITALS: Ht 165.1 cm; Wt 73.0 kg
[2018-09-24] MEDS ORDERED: ONDANSETRON HCL 4MG/2ML INJ IV STA (06:13)
[2018-09-24] MEDS ORDERED: MORPHINE SULFATE 4 MG/ML CPJ (NOT FOR IM USE) IV ONE (06:30)
[2018-09-24] MEDS ORDERED: FAMOTIDINE 20MG/2ML VIAL IV ONE (06:30)
[2018-09-24 06:38] LABS: BASOPHILS % 1.3 % (0.0-2.0); CHLORIDE 105 mEq/L (98-107); HEMATOCRIT. 31.5 % (36.0-48.0); HEMOGLOBIN. 10.1 g/dL (12.0-16.0); LYMPHOCYTES % 34.9 % (20.0-50.0); MEAN CORPUSCULAR VOLUME 71.2 fL (81.0-99.0); MEAN PLATELET VOLUME 10.1 fl (7.4-10.4); MONOCYTES % 12.5 % (2.0-8.0); NEUTROPHILS % 48.3 % (40.0-76.0); PLATELET 300 x1000/uL (130-400); RED BLOOD CELL COUNT 4.42 mill/uL (4.2-5.4); RED CELL DISTRIBUTION WIDTH 19.8 % (11.6-14.6)
[2018-09-24 06:53] LABS: HCG SCREEN NEGATIVE
[2018-09-24 07:25] LABS: INR 1.1; PARTIAL THROMBOPLASTIN TIME 27.1 sec (23.4-31.0); PROTHROMBIN TIME 10.9 sec (9.6-11.0)
[2018-09-24] MEDS ORDERED: INSULIN REGULAR (HUMULIN R) 300UNITS/3ML IV ONE (08:00)
[2018-09-24] MEDS ORDERED: DEXTROSE 50% WATER 50ML SYRINGE IV ONE (08:00)
[2018-09-24 09:39] VITALS: BP_SYST 158; BP_SYST 170; BP_DIAS 74; BP_DIAS 86
[2018-09-24 12:00] VITALS: BP_SYST 158; BP_SYST 226; BP_DIAS 74; BP_DIAS 90
[2018-09-24] MEDS: DIPHENHYDRAMINE 50MG/ML VIAL IM PRN ×2 (14:24→21:16)
[2018-09-24 16:00] VITALS: BP 226/90
[2018-09-24] MEDS ORDERED: MAGNESIUM/ALUMINUM HYDROXIDE/SIMETHICONE 30ML UDC PO PRN (17:00)
[2018-09-24] MEDS ORDERED: ONDANSETRON HCL 4MG/2ML INJ IV PRN (17:00)
[2018-09-24] MEDS: FERROUS SULFATE 325MG TABLET PO SCH (17:32)
[2018-09-24] MEDS: CLONIDINE 0.1MG TABLET PO PRN (17:32)
[2018-09-24] MEDS: ENOXAPARIN 30MG/0.3ML SYR SUBCUT SCH (17:33)
[2018-09-24 20:00] VITALS: BP 155/52
[2018-09-24 23:38] LABS: CREATINE KINASE MB FRACTION 2.1 ng/mL (0.5-3.6)
[2018-09-25] VITALS (7 sets, daily range): BP systolic 100–209; BP diastolic 58–100
[2018-09-25 08:16] LABS: CREATINE KINASE MB FRACTION 1.9 ng/mL (0.5-3.6)
[2018-09-25] MEDS: CLONIDINE 0.1MG TABLET PO PRN ×2 (08:16→13:51)
[2018-09-25] MEDS: FERROUS SULFATE 325MG TABLET PO SCH (08:16)
[2018-09-25] MEDS: THIAMINE HCL 100MG TABLET PO SCH (08:16)
[2018-09-25] MEDS: CINACALCET HCL 60MG TABLET PO SCH (09:07)
[2018-09-25] MEDS ORDERED: SODIUM CHLORIDE 0.9% 1,000 ML IV SCH (11:45)
[2018-09-25] MEDS: DIPHENHYDRAMINE 50MG/ML VIAL IM PRN (13:59)
[2018-09-25] MEDS: ENOXAPARIN 30MG/0.3ML SYR SUBCUT SCH (16:43)
[2018-09-26] VITALS: BP 118/62
[2018-09-26 04:00] VITALS: BP 129/77
[2018-09-26] MEDS: DIPHENHYDRAMINE 50MG/ML VIAL IM PRN ×2 (05:19→14:12)
[2018-09-26 07:37] LABS: HEMATOCRIT. 31.6 % (36.0-48.0); HEMOGLOBIN. 10.1 g/dL (12.0-16.0); MEAN CORPUSCULAR HEMOGLOBIN 22.8 pg (28.0-32.0); MEAN CORPUSCULAR VOLUME 71.4 fL (81.0-99.0); MEAN PLATELET VOLUME 9.4 fl (7.4-10.4); PLATELET 208 x1000/uL (130-400); RED BLOOD CELL COUNT 4.43 mill/uL (4.2-5.4); RED CELL DISTRIBUTION WIDTH 19.3 % (11.6-14.6)
[2018-09-26 08:00] VITALS: BP 128/74
[2018-09-26 08:06] LABS: PHOSPHORUS 7.2 mg/dL (2.5-4.9)
[2018-09-26] MEDS: FERROUS SULFATE 325MG TABLET PO SCH (08:25)
[2018-09-26] MEDS: THIAMINE HCL 100MG TABLET PO SCH (08:25)
[2018-09-26] MEDS: CINACALCET HCL 60MG TABLET PO SCH (08:26)
[2018-09-26 12:00] VITALS: BP 139/69
[2018-09-26] MEDS ORDERED: SODIUM POLYSTYRENE SULFONATE 15 G/60 ML BOT PO SCH (14:00)
[2018-09-26 16:00] VITALS: BP 125/72
[2018-09-26] MEDS: ENOXAPARIN 30MG/0.3ML SYR SUBCUT SCH (16:59)
[2018-09-26 17:14] LABS: PLATELET ESTIMATE NORMAL
[2018-09-26 20:00] VITALS: BP 141/78
[2018-09-26] MEDS: MUPIROCIN 2% OINT 22GM NS SCH (22:23)
[2018-09-27] VITALS: BP 136/78
[2018-09-27 04:00] VITALS: BP 139/80
[2018-09-27 08:22] VITALS: BP 134/86
[2018-09-27] MEDS: MUPIROCIN 2% OINT 22GM NS SCH (09:48)
[2018-09-27] MEDS: ENOXAPARIN 30MG/0.3ML SYR SUBCUT SCH ×2 (09:49→16:06)
[2018-09-27] MEDS: THIAMINE HCL 100MG TABLET PO SCH (09:49)
[2018-09-27] MEDS: FERROUS SULFATE 325MG TABLET PO SCH (09:49)
[2018-09-27] MEDS: CINACALCET HCL 60MG TABLET PO SCH (09:50)
[2018-09-27 12:22] VITALS: BP 135/80
[2018-09-27] MEDS: DIPHENHYDRAMINE 50MG/ML VIAL IM PRN (14:11)
[2018-09-27 15:59] VITALS: BP 131/81
[2018-09-27 18:43] VITALS: BP 131/81
== END 2018-09-27 20:15 | DRG 205 ==
LOC: ER 05:43 → 8WST 07:37 → EDBEDREQ 07:41 → ENRESERV 08:41
PROVIDERS: ADMIT Internal Medicine Nephrology; ATTEND Internal Medicine Nephrology
PROC: 5A1D70Z Performance of Urinary Filtration, Intermittent, Less than 6 Hours Per Day (ICD-10-PCS; principal; 2018-09-24)
PROC: 5A1D70Z Performance of Urinary Filtration, Intermittent, Less than 6 Hours Per Day (ICD-10-PCS; 2018-09-27)
DX: M94.0 Chondrocostal junction syndrome [Tietze] (principal); N18.6 End stage renal disease; N17.9 Acute kidney failure, unspecified; I12.0 Hypertensive chronic kidney disease with stage 5 chronic kidney disease or end stage renal disease; E11.22 Type 2 diabetes mellitus with diabetic chronic kidney disease; E83.39 Other disorders of phosphorus metabolism; K21.9 Gastro-esophageal reflux disease without esophagitis; D63.8 Anemia in other chronic diseases classified elsewhere; Z99.2 Dependence on renal dialysis; Z59.0 Homelessness; Z98.891 History of uterine scar from previous surgery; Z88.1 Allergy status to other antibiotic agents; Z91.15 Patient's noncompliance with renal dialysis
CPT/HCPCS: 36415; 71045; 80048; 82550; 82553; 82962; 83735; 84100; 84132; 84484; 84703; 93005; 93306; 96374; 96375; 97162; 99291; C1893; J1200; J1650; J1815; J2270; J2405; J3490

== ENCOUNTER 2018-10-01 16:13 | Emergency (ER) | payer MEDICARE, MEDICAID ==
[~2018-10-01] VITALS: Ht 172.7 cm; Wt 76.0 kg
[2018-10-01] MEDS ORDERED: SODIUM CHLORIDE 0.9% 1,000 ML IV ONE (16:37)
[2018-10-01] MEDS ORDERED: ONDANSETRON HCL 4MG/2ML INJ IV STA (16:37)
[2018-10-01] MEDS ORDERED: FAMOTIDINE 20MG/2ML VIAL IV STA (16:37)
[2018-10-01] MEDS ORDERED: MORPHINE SULFATE 4 MG/ML CPJ (NOT FOR IM USE) IV STA (16:37)
[2018-10-01 17:38] LABS: BASOPHILS % 1.1 % (0.0-2.0); EOSINOPHILS % 0.1 % (0.0-5.0); HEMATOCRIT. 39.4 % (36.0-48.0); HEMOGLOBIN. 12.4 g/dL (12.0-16.0); LYMPHOCYTES % 21.5 % (20.0-50.0); MEAN CORPUSCULAR HEMOGLOBIN 22.7 pg (28.0-32.0); MEAN PLATELET VOLUME 10.4 fl (7.4-10.4); MONOCYTES % 6.2 % (2.0-8.0); NEUTROPHILS % 71.1 % (40.0-76.0); PLATELET 258 x1000/uL (130-400); RED BLOOD CELL COUNT 5.47 mill/uL (4.2-5.4); RED CELL DISTRIBUTION WIDTH 20.9 % (11.6-14.6)
[2018-10-01 17:42] LABS: CHLORIDE 96 mEq/L (98-107); HCG SCREEN NEGATIVE
[2018-10-01 17:44] LABS: INR 1.1; PROTHROMBIN TIME 11.2 sec (9.6-11.0)
[2018-10-01 17:47] LABS: ETHANOL BLOOD < 10 mg/dL
[2018-10-01] MEDS ORDERED: KETOROLAC 30MG/ML VIAL IV ONE (18:00)
[2018-10-01] MEDS ORDERED: ONDANSETRON HCL 4MG/2ML INJ IV ONE (18:00)
[2018-10-01] MEDS ORDERED: MORPHINE SULFATE 4 MG/ML CPJ (NOT FOR IM USE) IV ONE (18:00)
[2018-10-01] MEDS ORDERED: SODIUM CHLORIDE 0.9% 1,000 ML IV SCH (23:17)
[2018-10-01] MEDS ORDERED: ENOXAPARIN 40MG/0.4ML SYR SUBCUT SCH (23:30)
[2018-10-01] MEDS ORDERED: ONDANSETRON HCL 4MG/2ML INJ IV PRN (23:30)
[2018-10-01] MEDS ORDERED: LORAZEPAM 2MG/ML CPJ IV PRN (23:30)
[2018-10-01] MEDS ORDERED: CINACALCET HCL 30MG TABLET PO SCH (23:30)
[2018-10-01] MEDS ORDERED: HYDROCODONE/ACETAMINOPHEN 5/325MG TABLET PO PRN (23:30)
[2018-10-02 07:30] VITALS: BP 142/87
[2018-10-02] MEDS ORDERED: FOLIC ACID 1MG TABLET PO SCH (09:00)
[2018-10-02] MEDS ORDERED: ASPIRIN 81MG EC TABLET PO SCH (09:00)
== END 2018-10-02 07:57 | disposition left against medical advice (07) ==
LOC: ER 16:13 → EDBEDREQ 21:15 → EDBEDREQTM 21:15 → CANRESERV 10-02 07:14 → ENRESERV 10-02 07:14 → CANBEDREQ 10-02 07:43 → ER 10-02 07:57
DX: R10.32 Left lower quadrant pain (principal); E11.22 Type 2 diabetes mellitus with diabetic chronic kidney disease; I12.0 Hypertensive chronic kidney disease with stage 5 chronic kidney disease or end stage renal disease; N18.6 End stage renal disease; Z99.2 Dependence on renal dialysis; Z88.3 Allergy status to other anti-infective agents
CPT/HCPCS: 36415; 71045; 74176; 80053; 80320; 83690; 83880; 84703; 85025; 85610; 93005; 96361; 96374; 96375; 96376; 99284; J1885; J2270; J2405; J3490; J7030; G0480